=== PATIENT | female | born 1960 | race Caucasian/White ===

== ENCOUNTER 2019-06-24 04:22 | Emergency (ER) | payer OTHER ==
[2019-06-24] MEDS ORDERED: Ondansetron ODT 8 MG TAB ONE (05:11)
[2019-06-24] MEDS ORDERED: HYDROcodone/Acetaminophen 5/325 mg Tablet ONE (05:11)
[2019-06-24] MEDS ORDERED: Bacitracin 1 PK ONE (05:18)
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
== END 2019-06-24 05:30 | disposition home or self-care (01) ==
LOC: ERS 04:22
DX: S61.305A Unspecified open wound of left ring finger with damage to nail, initial encounter (principal); S40.812A Abrasion of left upper arm, initial encounter; V89.2XXA Person injured in unspecified motor-vehicle accident, traffic, initial encounter
CPT/HCPCS: G0390